=== PATIENT | female | born 1955 | race Caucasian/White ===

== ENCOUNTER 2018-02-05 17:48 | Emergency (ER) | payer OTHER ==
[~2018-02-05] VITALS: Ht 149.9 cm; Wt 46.3 kg
[2018-02-05 17:51] VITALS: BP 161/70
[2018-02-05 19:36] VITALS: BP 161/70
== END 2018-02-05 19:37 | disposition home or self-care (01) ==
LOC: MED 17:48
DX: M65.332 Trigger finger, left middle finger (principal); M65.342 Trigger finger, left ring finger
CPT/HCPCS: 73140; 99284; Q0092